=== PATIENT | male | born 1990 | race Caucasian/White ===

== ENCOUNTER 2016-09-20 15:02 | Emergency (ER) | payer OTHER ==
[~2016-09-20] VITALS: Ht 193 cm; Wt 100.5 kg
[2016-09-20 15:08] VITALS: Ht 193 cm; Wt 100.5 kg
[2016-09-20] MEDS ORDERED: DIPHTHERIA/TETANUS/PERTUSSIS 0.5 ML SYR/VIAL IM. ONE (15:30)
[2016-09-20] MEDS ORDERED: XYLOCAINE 1%/SOD BICARB 20 ML VIAL INFIL ONE (15:30)
[2016-09-20] MEDS ORDERED: LIDOCAINE HCL 2% 2 ML VIAL (20MG/ML) ONE (16:38)
[2016-09-20] MEDS ORDERED: MIDAZOLAM HCL 1 MG/ML 2ML VIAL ONE ×2 (16:38→17:32)
[2016-09-20] MEDS ORDERED: DEXAMETHASONE SOD INJ 4 MG/ML VIAL ONE (16:38)
[2016-09-20] MEDS ORDERED: PROPOFOL IV EMULSION 10 MG/ML 20 ML VIAL IV ONE (16:38)
[2016-09-20] MEDS ORDERED: ROCURONIUM BROMIDE 10 MG/ML 5 ML VIAL ONE (16:38)
[2016-09-20] MEDS ORDERED: ONDANSETRON INJ 2 MG/ML 2 ML VIAL ONE (16:38)
[2016-09-20] MEDS ORDERED: FENTANYL CITRATE INJ 50 MCG/1 ML 2 ML VIAL ONE ×2 (16:39)
[2016-09-20 16:47] VITALS: O2SAT 97
[2016-09-20 16:50] LABS: BASO % 2.1 %; COMPLETE YES; EOS % 3.2 %; HEMATOCRIT 42.4 % (42-52); IG% 0.4 %; LYMPH % 23.2 %; LYMPH ABS # 2.17 K/uL (1.2-3.4); MEAN CELL VOLUME 84.8 fL (80-100); MEAN CORPUSCULAR HGB CONC 35.4 g/dl (32-36); MEAN PLATELET VOLUME 9.8 fL (7.4-10.4); NEUT % 64.1 %; PLATELET COUNT 227 K/uL (130-400); WHITE BLOOD COUNT 9.37 K/uL (4.8-10.8)
[2016-09-20 16:59] LABS: PARTIAL THROMBOPLASTIN RATIO 1.1; PROTHROMBIN TIME (PATIENT) 10.2 SECONDS (9.0-12.0)
[2016-09-20 17:06] LABS: BUN/CREATININE RATIO 12.9 (10-20); CALCIUM 8.7 mg/dl (8.5-10.1); CREATININE 0.84 mg/dl (0.60-1.40); POTASSIUM 3.8 mmol/L (3.5-5.1)
--- NOTE | 2016-09-20 17:15 | EMERGENCY ROOM VISIT NOTE ---
ED Visit Note First contact with patient: 15:26 CHIEF COMPLAINT: Left hand laceration the HISTORY OF PRESENT ILLNESS: This 26-year-old male presents the ER with chief complaint of left hand laceration. The patient states that he cut his left hand on a glass in between his thumb and index finger. He states it is squirting out blood. The patient denies any numbness and tingling in his fingers. The patient is right-hand dominant. The patient's tetanus status is unknown. REVIEW OF SYSTEMS: 6 system review was performed and was negative unless stated otherwise in history of present illness. PMH: The patient is healthy; there is no significant medical or surgical history. SOCIAL HISTORY: Patient lives with his with a roommate. The patient admits to tobacco use and very rare alcohol use. PHYSICAL EXAM: Vital Signs: Were reviewed Reviewed Nurse's notes. GEN.: 26-year -old white male appears in no acute distress. MENTAL Status: Alert and oriented 3. RIGHT HAND: There is a 2.5 cm long laceration in the webspace between the thumb and index finger. The wound is gaping apart and there is pulsing squirting blood coming from the wound. It appears to be the [place] artery The patient is able to move his thumb and index finger without difficulty. Sensation is intact. EMERGENCY DEPARTMENT COURSE: The patient was evaluated. We tried to stop the bleeding with first a blood pressure cuff on the left arm as well as a tourniquet without any success. Pressure was applied initially without any results. The wound was anesthetized with 1% buffered lidocaine. I attempted to blind tie the vessel unsuccessfully. Quick clot was applied and point pressure was also applied and the patient placed his arm above his head as directed by Dr. Taylor when I consulted him. He stayed in this position for 15 minutes. The patient was reevaluated and he was still actively bleeding. IV access was obtained. CBC and differential, renal profile cars were ordered. Dr taylor came to evaluate the patient. He decided to take the patient to the OR.. DIAGNOSIS: Right hand laceration/arterial bleed TREATMENT PLAN: The patient was taken to the OR. Current/Historical Medications No Active Prescriptions or Reported Meds Allergies Coded Allergies: No Known Allergies (Unverified , 09/20/16) Vital Signs Date Time Temp Pulse Resp B/P Pulse Ox O2 Delivery O2 Flow Rate FiO2 09/20/16 16:47 101 16 111/83 97 Room Air 09/20/16 15:08 37.3 140 20 144/79 97 Room Air Laboratory Results 09/20/16 16:40 Red Blood Count 5.00, Mean Corpuscular Volume 84.8, Mean Corpuscular Hemoglobin 30.0, Mean Corpuscular Hemoglobin Concent 35.4, Mean Platelet Volume 9.8, Neutrophils (%) (Auto) 64.1, Lymphocytes (%) (Auto) 23.2, Monocytes (%) (Auto) 7.0, Eosinophils (%) (Auto) 3.2, Basophils (%) (Auto) 2.1, Neutrophils # (Auto) 6.00, Lymphocytes # (Auto) 2.17, Monocytes # (Auto) 0.66, Eosinophils # (Auto) 0.30, Basophils # (Auto) 0.20 09/20/16 16:40 Test 09/20/16 16:40 White Blood Count 9.37 K/uL (4.8-10.8) Red Blood Count 5.00 M/uL (4.7-6.1) Hemoglobin 15.0 g/dL (14.0-18.0) Hematocrit 42.4 % (42-52) Mean Corpuscular Volume 84.8 fL (80-100) Mean Corpuscular Hemoglobin 30.0 pg (25-34) Mean Corpuscular Hemoglobin Concent 35.4 g/dl (32-36) Platelet Count 227 K/uL (130-400) Mean Platelet Volume 9.8 fL (7.4-10.4) Neutrophils (%) (Auto) 64.1 % Lymphocytes (%) (Auto) 23.2 % Monocytes (%) (Auto) 7.0 % Eosinophils (%) (Auto) 3.2 % Basophils (%) (Auto) 2.1 % Neutrophils # (Auto) 6.00 K/uL (1.4-6.5) Lymphocytes # (Auto) 2.17 K/uL (1.2-3.4) Monocytes # (Auto) 0.66 K/uL (0.11-0.59) Eosinophils # (Auto) 0.30 K/uL (0-0.5) Basophils # (Auto) 0.20 K/uL (0-0.2) RDW Standard Deviation 37.5 fL (36.4-46.3) RDW Coefficient of Variation 12.3 % (11.5-14.5) Immature Granulocyte % (Auto) 0.4 % Immature Granulocyte # (Auto) 0.04 K/uL (0.00-0.02) Prothrombin Time 10.2 SECONDS (9.0-12.0) Prothromb Time International Ratio 1.0 (0.9-1.1) Activated Partial Thromboplast Time 28.0 SECONDS (21.0-31.0) Partial Thromboplastin Ratio 1.1 Anion Gap 9.0 mmol/L (3-11) Est Creatinine Clear Calc Drug Dose 163.5 ml/min Estimated GFR () 140.1 Estimated GFR (Non- 120.8 BUN/Creatinine Ratio 12.9 (10-20) Calcium Level 8.7 mg/dl (8.5-10.1) Medications Administered Medications (Trade) Dose Ordered Sig/Nandini Route Start Time Stop Time Status Last Admin Dose Admin Diphtheria/ Pertussis/Tetanus Vacc (Adacel Inj) 0.5 ml ONCE ONCE IM. 09/20/16 15:30 09/20/16 15:31 DC 09/20/16 16:09 0.5 ML Departure Information Prescriptions No Active Prescriptions or Reported Meds Referrals No Doctor, Assigned (PCP) Patient Instructions [facility]
[2016-09-20] MEDS ORDERED: CEFAZOLIN IV 2,000 MG/60 ML D5W IV ONE (17:17)
[2016-09-20] MEDS ORDERED: NURSING VERBAL MED ORDER ONE (17:30)
[2016-09-20] MEDS ORDERED: KETAMINE HCL INJ 50 MG/ML 10 ML VIAL ONE (17:31)
[2016-09-20] MEDS ORDERED: BUPIVACAINE 0.5 % 5 MG/1 ML MPF 30ML VIAL INJ ONE (18:11)
[2016-09-20] MEDS ORDERED: LIDOCAINE MPF 1% INJ 30 ML SDV (L&D) INFIL ONE (18:12)
--- NOTE | 2016-09-20 18:35 | [facility] Post Operative Brief Note ---
Immediate Operative Summary Operative Date Sep 20, 2016. Pre-Operative Diagnosis Left hand laceration Post-Operative Diagnosis Left hand laceration Procedure(s) Performed Exploration of penetrating wound, Ligation or digital artery, Repair of ulnar digital nerve Left hand Surgeon Dr. Taylor Flight Test Mechanic Surgeon(s) none Estimated Blood Loss 10 cc Findings partial laceration digital nerve, laceration digital artery Specimens none per surgeon Anesthesia local mac Complication(s) None Disposition Surgical ICU
[2016-09-20] MEDS ORDERED: BACITRACIN 50000 UNIT VIAL IR ONE (18:45)
[2016-09-20] MEDS ORDERED: EpHEDrine SULFATE INJ 50 MG/ML AMP IV PRN (18:45)
[2016-09-20] MEDS ORDERED: HYDROmorphone INJ 1 MG/ML SYR IV PRN (18:45)
[2016-09-20] MEDS ORDERED: FLUMAZENIL 0.1 MG/1 ML 10 ML VIAL IV PRN (18:45)
[2016-09-20] MEDS ORDERED: PROMETHAZINE HCL INJ 12.5 MG in SODIUM CHLORIDE 0.9% 50ML 50 ML IV PRN (18:45)
[2016-09-20] MEDS ORDERED: ONDANSETRON INJ 2 MG/ML 2 ML VIAL IV PRN (18:45)
[2016-09-20] MEDS ORDERED: NALOXONE HCL 0.4 MG/1 ML VIAL/CARP IV PRN (18:45)
[2016-09-20] MEDS ORDERED: ATROPINE SULFATE 0.1 MG/ML 5ML SYR IV PRN (18:45)
--- NOTE | 2016-09-20 18:51 | Anesthesiology Progress Note ---
Anesthesia Post Op Note Date & Time Sep 20, 2016 at 18:52 Vital Signs Pain Intensity: 0 Vital Signs Past 12 Hours Date Time Temp Pulse Resp B/P Pulse Ox O2 Delivery O2 Flow Rate FiO2 09/20/16 18:45 97 18 129/80 96 Room Air 09/20/16 18:35 37. 92 18 130/78 99 Room Air 09/20/16 16:47 101 16 111/83 97 Room Air 09/20/16 15:08 37.3 140 20 144/79 97 Room Air Notes Mental Status: alert / awake / arousable, participated in evaluation Pt Amnestic to Procedure: Yes Nausea / Vomiting: adequately controlled Pain: adequately controlled Airway Patency, RR, SpO2: stable & adequate BP & HR: stable & adequate Hydration State: stable & adequate Anesthetic Complications: no major complications apparent
[2016-09-20 19:00] VITALS: BP 128/84; PULSE 99; TEMP 36.6; O2SAT 96
--- NOTE | 2016-09-20 19:09 | Discharge Instructions ---
Discharge Instructions Visit Reason for Visit: Left Hand Cut With Glass Cup Discharge Discharge Diagnosis / Problem: digital nerve laceration Discharge Goals Goal(s): Improve function Activity Recommendations Lifting Limitations: no more than 5 pounds Exercise/Sports Limitations: rest today, until after follow-up appointment Shower/Bathe: keep incision dry Weightbearing Status: Left weightbearing (as tolerated) Anesthesia . Post Anesthesia Instructions: If you have had General Anesthesia or IV Sedation: * Do not drive today. * Resume driving when surgeon permits. * Do not make important decisions or sign legal documents today. * Call surgeon for: 1. Temperature elevations greater than 101 degrees F. 2. Uncontrollable pain. 3. Excessive bleeding. 4. Persistent nausea and vomiting. 5. Medication intolerance (nausea, vomiting or rash). * For nausea and vomiting use only clear liquids such as: tea, soda, bouillon until nausea subsides, then gradually increase diet as tolerated. * If you have any concerns or questions, call your surgeon's office. If physician is unavailable and it is an emergency, call 911 or go to the nearest emergency room. . Instructions / Follow-Up Instructions / Follow-Up UOC : Hand /Wrist Instr. ACTIVITY RECOMMENDATIONS: Avoid lifting anything until your first post-operative visit. Keep your hand elevated above the level of your heart at all times. Elbow should be above the level of the heart, and hand kept above the elbow. ~ You may use a sling if necessary. Ice the affected extremity a minimum of 3-4 times a day, 20 minutes each time. SPECIAL CARE INSTRUCTIONS: * Your bandage should be left in place until seen in the office. * Some drainage onto the dressing may occur.~ This is normal. * If the bandage feels excessively tight, you may loosen the elastic bandage.~ Then call the physician's office for further instructions. * You should move your fingers regularly, making a fist and extending them, unless otherwise instructed. SPECIAL PRECAUTIONS: * If you notice increased drainage, fever over 101 degrees F. or severe, unremitting pain, call your physician/office at . * You may have been prescribed pain medication.~ If you experience nausea and/ or skin rash, discontinue this medication and contact our office for an alternative medication. Pain Medication: a. You will be prescribed pain medication upon discharge that should last till your first post-operative appointment. b. You may also take Advil, Ibuprofen or Aleve between medication doses if you do not have any contraindication to taking them. c. You may also take Advil, Ibuprofen, Aleve or Tylenol in place of your pain medication if the pain is tolerable. FOLLOW UP VISIT: If appointment is not already scheduled: Please call [facility] to make a follow-up appointment after your surgery at . Follow up appointment with Dr. Taylor or his PA: 10-14 days. CALL FOR APPOINTMENT. [phone] KEEP CAST CLEAN AND DRY UNTIL FOLLOW UP APPOINTNMENT NO USE OF THUMB Diet Recommendations Recommended Home Diet: no limitations Procedures Procedures Performed: Exploration of penetrating wound, Ligation or digital artery, Repair of ulnar digital nerve Left hand Pending Studies Studies pending at discharge: no Work Instructions Return To Work: 1 day Medical Emergencies . Who to Call and When: Medical Emergencies: If at any time you feel your situation is an emergency, please call 911 immediately. . Non-Emergent Contact Non-Emergency issues call your: Primary Care Provider . . "Provider Documentation" section prepared by Victorino Shearer.
[2016-09-20 19:30] VITALS: BP 137/74; PULSE 99; TEMP 36.7; O2SAT 97
--- NOTE | 2016-09-21 03:08 | HISTORY & PHYSICAL EXAMINATION ---
DATE OF ADMISSION: 09/20/2016 SPECIAL ATTENTION TO LEFT HAND LACERATION This is a 26-year-old gentleman who accidentally cut himself with a broken piece of dishware early in the afternoon. He presented to the Emergency Department with uncontrolled bleeding in the left hand, complains of pain in the local area. No other complaints, denies any other injury. Left hand exam does show a laceration approximately 1.5 cm over the volar aspect of the thumb, in the region of the proximal flexion crease. Small arterial bleeder is seen. The thumb is warm and well perfused. Has 2+ capillary refill. He can flex and extend the IP joint of the thumb. PAST MEDICAL HISTORY: Denies any systemic medical problems. SOCIAL HISTORY: Does not smoke. Denies illicit drug use. History of alcohol use in the past. ASSESSMENT: 1. Left hand penetrating wound. 2. Active arterial bleeding left hand. 3. Possible digital nerve laceration. PLAN: I discussed findings with him. My recommendation is for an emergent trip to the operating room to control bleeders and ligate any vessels. I discussed a good possibility that he might have a digital nerve injury and/or flexor tendon injury. I discussed with him that we may or may not repair this at the time. He is agreeable and wishes to proceed. Plan for surgical intervention emergently.
--- NOTE | 2016-09-21 03:16 | OPERATIVE REPORT ---
DATE OF OPERATION: 09/20/2016 PREOPERATIVE DIAGNOSIS: Left hand penetrating wound. POSTOPERATIVE DIAGNOSIS: Left hand penetrating wound. PROCEDURE: 1. Left hand exploration of penetrating wound. 2. Left hand ligation of ulnar digital artery bleeder. 3. Left hand repair of ulnar digital nerve. SURGEON: Dr. Taylor. FIREWORKS DISPLAY SPECIALIST: None. ANESTHESIA: Local monitored anesthesia care. INDICATION: This is a gentleman who sustained the above-mentioned injury, presents with active arterial bleeding. Given the active bleeding, he was taken emergently to the operating room. Anesthesiology request was for a local MAC anesthesia given the patient is not n.p.o. Given that the patient is actively bleeding, I felt best to proceed with emergent surgery. DESCRIPTION OF OPERATION: The patient's traumatic laceration was inspected. This was over the volar proximal flexion crease of the thumb. This was extended proximally and distally. Branch of the ulnar digital artery was identified and this was actively bleeding. This was ligated with electrocautery at both ends. Tourniquet was let down. There was no active arterial bleeding and hemostasis was well controlled. The penetrating wound was inspected, there was no evidence of flexor tendon injury. The ulnar digital nerve was identified and there was about a 40% laceration in the digital nerve. I felt best to proceed with primary repair of the nerve. I trimmed the nerve back to fresh healthy tissue and performed a primary epineural repair with 8-0 nylon and loupe magnification. There was good stability of the nerve and it was not under undue tension. Incision was irrigated. Skin was closed with 4-0 Vicryl Rapide. The patient was placed in a thumb spica splint with the thumb in flexion. Postoperative plan would be to discontinue splint in 10-14 days, begin physical therapy, and avoid hyperextension of the thumb for approximately 2-3 additional weeks. I attest to the content of the Intraoperative Record and any orders documented therein. Any exceptio ns are noted below.
--- NOTE | 2016-09-24 08:10 | EDITING REQUIRED CODING QUERY ---
CODING QUERY To promote full compliance with coding requirements relating to patient care, provider participation is requested in all cases of hcc coders uncertainty. Please assist us with the question(s) below: Coding Question(s): Please clarify whether laceration was on left or right hand. HPI states pt cut left hand, but Diagnosis states Right hand. Also, please add Final Impression as this is not listed on report. Physician's Response(s): Laterality: Final Impression: Left Hand laceration with arterial bleed Thank you Faviola Hutchinson Principal Diagnosis: "_that condition established after study, to be chiefly responsible for occasioning the admission of the patient to the hospital for care." Co-Existing Principal Diagnosis: "_when two or more diagnoses equally meet the criteria for principal diagnosis as determined by the circumstances of admission, diagnostic work up, and/or therapy provided, and the Alphabetic Index, Tabular List, or another coding guideline does not provide sequencing direction, any one of the diagnoses may be sequenced first." "When the physician has documented what appears to be a current diagnosis in the body of the record, but has not included the diagnosis in the final diagnostic statement, the physician should be asked whether the diagnosis should be added." (Source [facility]oding [facility] 2 QTR90. p3-4)
== END 2016-09-20 19:30 | disposition home or self-care (01) ==
LOC: C.EDB 15:03 → C.EDD 19:30
DX: S61.412A Laceration without foreign body of left hand, initial encounter (principal); S65.012A Laceration of ulnar artery at wrist and hand level of left arm, initial encounter; W25.XXXA Contact with sharp glass, initial encounter; F17.200 Nicotine dependence, unspecified, uncomplicated; Z23 Encounter for immunization